=== PATIENT | female | born 1955 | race Hispanic/Latino ===

== ENCOUNTER 2021-12-06 08:05 | Outpatient (CLI) | payer MEDICARE, BC | END 2021-12-06 08:06 | disposition home or self-care (01) | LOC: CSHMAMMO 08:05 | PROVIDERS: ATTEND Family Medicine | DX: Z12.31 Encounter for screening mammogram for malignant neoplasm of breast (principal); Z80.3 Family history of malignant neoplasm of breast | CPT/HCPCS: 77063; 77067 ==

== ENCOUNTER 2022-09-21 11:45 | Outpatient (CLI) | payer MEDICARE, BC | END 2022-09-21 11:46 | disposition home or self-care (01) | LOC: CSHRAD 11:45 | PROVIDERS: ATTEND Internal Medicine | DX: J40 Bronchitis, not specified as acute or chronic (principal) | CPT/HCPCS: 71046 ==

== ENCOUNTER 2023-04-13 07:32 | Outpatient (CLI) | payer MEDICARE, BC | END 2023-04-13 07:33 | disposition home or self-care (01) | LOC: CSHULT 07:32 | PROVIDERS: ATTEND Internal Medicine Gastroenterology | DX: K74.60 Unspecified cirrhosis of liver (principal); I85.00 Esophageal varices without bleeding; R16.1 Splenomegaly, not elsewhere classified | CPT/HCPCS: 76705 ==

== ENCOUNTER 2023-04-19 15:11 | Outpatient (CLI) | payer MEDICARE, BC | END 2023-04-19 15:12 | disposition home or self-care (01) | LOC: CSHMAMMO 15:11 | PROVIDERS: ATTEND Internal Medicine | DX: Z12.31 Encounter for screening mammogram for malignant neoplasm of breast (principal); Z80.3 Family history of malignant neoplasm of breast | CPT/HCPCS: 77063; 77067 ==

== ENCOUNTER 2024-04-21 10:13 | Outpatient (CLI) | payer MEDICARE, BC | END 2024-04-21 10:14 | disposition home or self-care (01) | LOC: CSHMAMMO 10:13 | PROVIDERS: ATTEND Internal Medicine | DX: Z12.31 Encounter for screening mammogram for malignant neoplasm of breast (principal); Z80.3 Family history of malignant neoplasm of breast | CPT/HCPCS: 77063; 77067 ==

== ENCOUNTER 2024-05-14 13:44 | Outpatient (CLI) | payer MEDICARE, BC | END 2024-05-14 13:45 | disposition home or self-care (01) | LOC: CSHRAD 13:44 | PROVIDERS: ATTEND Nurse Practitioner Family | DX: S29.9XXA Unspecified injury of thorax, initial encounter (principal); S89.92XA Unspecified injury of left lower leg, initial encounter; S22.22XA Fracture of body of sternum, initial encounter for closed fracture; S22.41XA Multiple fractures of ribs, right side, initial encounter for closed fracture | CPT/HCPCS: 71120 ==